=== PATIENT | female | born 1965 | race Caucasian/White ===

== ENCOUNTER → 2024-10-01 13:45 | Outpatient (REF) | payer BC, SELFPAY | LOC: WDC 13:45 | PROVIDERS: ATTENDING PHYSICIAN Nurse Practitioner Adult Health; FAMILY PHYSICIAN Nurse Practitioner | DX: R92.2 Inconclusive mammogram (principal) | CPT/HCPCS: 76641 ==

== ENCOUNTER → 2024-12-06 15:43 | Outpatient (REF) | payer BC, SELFPAY | LOC: WDC 15:43 | PROVIDERS: ATTENDING PHYSICIAN Nurse Practitioner Adult Health; FAMILY PHYSICIAN Nurse Practitioner | DX: Z12.31 Encounter for screening mammogram for malignant neoplasm of breast (principal) | CPT/HCPCS: 77063; 77067 ==

== ENCOUNTER → 2025-04-12 09:47 | Outpatient (REF) | payer BC, SELFPAY | LOC: HWRAD 09:47 | PROVIDERS: ATTENDING PHYSICIAN Family Medicine Geriatric Medicine; FAMILY PHYSICIAN Nurse Practitioner; OTHER PHYSICIAN Obstetrics & Gynecology; REFERRING PHYSICIAN Internal Medicine Hematology & Oncology | DX: Z13.820 Encounter for screening for osteoporosis (principal); Z79.811 Long term (current) use of aromatase inhibitors | CPT/HCPCS: 77080 ==

== ENCOUNTER 2025-05-13 07:28 | Outpatient (RCR) | payer BC, SELFPAY | END 2025-05-13 23:59 | disposition home or self-care (01) | LOC: RPT 07:28 | PROVIDERS: ATTENDING PHYSICIAN Nurse Practitioner Adult Health; FAMILY PHYSICIAN Nurse Practitioner | DX: D05.11 Intraductal carcinoma in situ of right breast (principal); E55.9 Vitamin D deficiency, unspecified; Z79.811 Long term (current) use of aromatase inhibitors; N39.3 Stress incontinence (female) (male); M62.81 Muscle weakness (generalized); R39.15 Urgency of urination | CPT/HCPCS: 97163; 97530 ==

== ENCOUNTER 2025-06-26 14:04 | Outpatient (RCR) | payer BC, SELFPAY | END 2025-06-26 23:59 | disposition home or self-care (01) | LOC: RPT 14:04 | PROVIDERS: ATTENDING PHYSICIAN Nurse Practitioner Adult Health; FAMILY PHYSICIAN Nurse Practitioner | DX: D05.11 Intraductal carcinoma in situ of right breast (principal); E55.9 Vitamin D deficiency, unspecified; Z79.811 Long term (current) use of aromatase inhibitors; N39.3 Stress incontinence (female) (male); M62.81 Muscle weakness (generalized); R39.15 Urgency of urination | CPT/HCPCS: 97110; 97140; 97530 ==

== ENCOUNTER 2025-08-14 12:01 | Outpatient (RCR) | payer BC, SELFPAY | END 2025-08-14 23:59 | disposition home or self-care (01) | LOC: RPT 12:01 | PROVIDERS: ATTENDING PHYSICIAN Nurse Practitioner Adult Health; FAMILY PHYSICIAN Nurse Practitioner | DX: D05.11 Intraductal carcinoma in situ of right breast (principal); E55.9 Vitamin D deficiency, unspecified; Z79.811 Long term (current) use of aromatase inhibitors; M62.81 Muscle weakness (generalized); N39.3 Stress incontinence (female) (male); R39.15 Urgency of urination | CPT/HCPCS: 97110; 97140; 97530 ==

== ENCOUNTER 2025-09-16 10:21 | Outpatient (RCR) | payer BC, SELFPAY | END 2025-09-17 07:03 | disposition home or self-care (01) | LOC: RPT 10:21 | PROVIDERS: ATTENDING PHYSICIAN Nurse Practitioner Adult Health; FAMILY PHYSICIAN Nurse Practitioner | DX: D05.11 Intraductal carcinoma in situ of right breast (principal); E55.9 Vitamin D deficiency, unspecified; N39.3 Stress incontinence (female) (male); M62.81 Muscle weakness (generalized); R39.15 Urgency of urination; Z79.811 Long term (current) use of aromatase inhibitors | CPT/HCPCS: 97110; 97112; 97530 ==

== ENCOUNTER → 2025-11-04 13:45 | Outpatient (REF) | payer BC, SELFPAY | LOC: WDC 13:45 | PROVIDERS: ATTENDING PHYSICIAN Family Medicine Geriatric Medicine; FAMILY PHYSICIAN Nurse Practitioner | DX: R92.333 Mammographic heterogeneous density, bilateral breasts (principal) | CPT/HCPCS: 76641 ==